=== PATIENT | female | born 1980 | race Hispanic/Latino ===

== ENCOUNTER 2023-09-25 14:20 | Emergency (ER) | payer OTHER ==
[~2023-09-25] VITALS: Ht 152.4 cm; Wt 108.2 kg
[~2023-09-25 14:20] MED LIST: Z.0.NORCO 5-325 TA1 PO
[2023-09-25 14:42] VITALS: PULSE 102; RESP 19; TEMP 98.4; O2SAT 100
[2023-09-25] MEDS ORDERED: DEXILANT60 MG PO (14:50)
[2023-09-25] MEDS ORDERED: FIORICET 50-301 EACH PO (14:50)
== END 2023-09-25 16:05 | disposition home or self-care (01) ==
LOC: ER 14:25
DX: R11.2 Nausea with vomiting, unspecified (principal); K21.9 Gastro-esophageal reflux disease without esophagitis; R51.9 Headache, unspecified; I10 Essential (primary) hypertension; E78.5 Hyperlipidemia, unspecified; D64.9 Anemia, unspecified
CPT/HCPCS: 99283

== ENCOUNTER 2023-11-16 17:28 | Inpatient (IN) | payer OTHER ==
[~2023-11-16] VITALS: Ht 157.5 cm; Wt 106.6 kg
[~2023-11-16 17:28] MED LIST changes: +DEXILANT60 MG PO; +FIORICET 50-301 EACH PO
[2023-11-16] MEDS: FAMOTIDINE 20 MG/2 ML VIAL IV ONE (18:23)
[2023-11-16] MEDS: ONDANSETRON HCL INJ 2MG/ML 2ML 2 MG/ML VIAL IV ONE (18:24)
[2023-11-16] MEDS: SODIUM CHLORIDE 0.9% 1000ML 1,000 ML IV STA (18:24)
[2023-11-16] MEDS: KETOROLAC TROMETHAMINE 30 MG/ML VIAL IV ONE (18:24)
[2023-11-16 18:32] VITALS: PULSE 90; RESP 18; TEMP 99
[2023-11-16] MEDS ORDERED: ONDANSETRON HCL INJ 2MG/ML 2ML 2 MG/ML VIAL IV PRN (19:45)
[2023-11-16] MEDS ORDERED: ZOLPIDEM TARTRATE 5 MG TAB PO PRN (21:00)
[2023-11-16 21:37] VITALS: BP 139/79; PULSE 80; RESP 18; TEMP 98.1; O2SAT 100
[2023-11-16 22:00] VITALS: BP 139/79; PULSE 80; RESP 18; TEMP 98.1; O2SAT 100
[2023-11-16] MEDS ORDERED: LISINOPRIL5 MG PO (22:26)
[2023-11-16] MEDS ORDERED: MAGNESIUM/ALUMINUM/SIMETHICONE 30 ML UDC PO PRN (23:45)
[2023-11-16] MEDS ORDERED: HYDROCODONE/APAP 5MG-325MG TAB PO PRN (23:45)
[2023-11-16] MEDS ORDERED: HYDRALAZINE HCL 20 MG/ML VIAL IV PRN (23:45)
[2023-11-16] MEDS ORDERED: ACETAMINOPHEN 325 MG TAB PO PRN (23:45)
[2023-11-16] MEDS ORDERED: GUAIFENESIN/DEXTROMETHORPHAN LIQD 5 ML UDC PO PRN (23:45)
[2023-11-16] MEDS ORDERED: FERROUS SULFAT325 MG PO (23:51)
[2023-11-16] MEDS ORDERED: DOCUSATE SODIU100 MG PO (23:51)
[2023-11-17] VITALS (7 sets, daily range): BP systolic 108–139; BP diastolic 50–86; PULSE 66–80; RESP 18–19; TEMP 97.8–98.5; O2SAT 99–100
[2023-11-17] MEDS: ACETAMIN/BUTALBITAL/CAFFEINE TAB PO PRN (01:30)
[2023-11-17 02:22] LABS: % IRON SATURATION 7 % (15-50); IRON 23 ug/dL (50-170); TOTAL IRON BINDING CAPACITY 350 ug/dL (261-478); TRANSFERRIN 250 mg/dL (180-382)
[2023-11-17 02:24] LABS: ALBUMIN 3.3 g/dL (3.5-5.0); ALBUMIN/GLOBULIN RATIO 1.1 (0.8-2.0); ANION GAP 12.5 mmol/L (8-16); BILIRUBIN,TOTAL 0.4 mg/dL (0.2-1.2); CALCIUM 8.4 mg/dL (8.4-10.2); CREATININE, SERUM 0.69 mg/dL (0.57-1.11); POTASSIUM 3.5 mmol/L (3.5-5.1); TOTAL PROTEIN 6.4 g/dL (6.5-8.1)
[2023-11-17 03:01] LABS: FOLATE 9.9 ng/mL (7.0-15.4)
[2023-11-17 03:19] LABS: BASOPHILS % 0.4 % (0.0-1.0); EOSINOPHILS # (AUTO) 0.1 (0.0-0.4); EOSINOPHILS % 0.6 % (0.0-6.0); LYMPHOCYTES # (AUTO) 1.5 (1.0-3.2); LYMPHOCYTES % 18.6 % (18.0-39.1); MEAN CORPUSCULAR HEMOGLOBIN 16.6 pg (28-32); MEAN CORPUSCULAR HGB CONC 25.7 g/dL (31-35); MEAN CORPUSCULAR VOLUME 64.8 fL (81-99); MONOCYTES # (AUTO) 0.7 (0.2-0.8); MONOCYTES % 8.5 % (4.4-11.3); NEUTROPHILS # (AUTO) 5.8 (2.1-6.9); PLATELET COUNT 346 x10e3/uL (140-360); RED BLOOD COUNT 3.49 x10e6/uL (3.6-5.1); RED CELL DISTRIBUTION WIDTH 19.2 % (11.7-14.4); WHITE BLOOD COUNT 8.22 x10e3/uL (4.8-10.8)
[2023-11-17 03:26] LABS: HEMATOCRIT 22.6 % (34.2-44.1); HEMOGLOBIN 5.8 g/dL (12.0-16.0)
[2023-11-17] MEDS: DIPHENHYDRAMINE HCL INJ 50 MG/ML VIAL IV ONE (03:38)
[2023-11-17] MEDS: ACETAMINOPHEN 325 MG TAB PO ONE (03:39)
[2023-11-17] MEDS: SODIUM CHLORIDE 0.9% 250ML 250 ML IV ONE (05:00)
[2023-11-17] MEDS ORDERED: INFLUENZA VIRUS VAC SPLIT INJ 0.5 ML SYR IM SCH (05:01)
[2023-11-17] MEDS: DIPHENHYDRAMINE HCL INJ 50 MG/ML VIAL ONE (06:00)
[2023-11-17] MEDS: SODIUM CHLORIDE 0.9% 250ML 250 ML ONE (06:00)
[2023-11-17] MEDS: METOCLOPRAMIDE HCL 10 MG/2ML VIAL IV SCH (06:11)
[2023-11-17] MEDS: METOCLOPRAMIDE HCL 10 MG/2ML VIAL IV STA (07:54)
[2023-11-17] MEDS: LISINOPRIL 2.5 MG TAB PO SCH (08:38)
[2023-11-17] MEDS: MULTIVITAMINS/MINERALS TAB PO SCH (08:38)
[2023-11-17] MEDS ORDERED: FAMOTIDINE 20 MG/2 ML VIAL IV SCH (09:00)
[2023-11-17] MEDS: IRON SUCROSE 100 MG in SODIUM CHLORIDE 0.9% 100 ML IV ONE ×2 (13:53)
[2023-11-17 16:02] LABS: BASOPHILS % 0.6 % (0.0-1.0); EOSINOPHILS # (AUTO) 0.1 (0.0-0.4); EOSINOPHILS % 0.8 % (0.0-6.0); HEMOGLOBIN 7.8 g/dL (12.0-16.0); LYMPHOCYTES # (AUTO) 1.2 (1.0-3.2); LYMPHOCYTES % 16.9 % (18.0-39.1); MEAN CORPUSCULAR HGB CONC 26.9 g/dL (31-35); MEAN CORPUSCULAR VOLUME 70.7 fL (81-99); MONOCYTES # (AUTO) 0.6 (0.2-0.8); MONOCYTES % 8.8 % (4.4-11.3); NEUTROPHILS # (AUTO) 5.2 (2.1-6.9); NEUTROPHILS % 72.1 % (38.7-80.0); PLATELET COUNT 340 x10e3/uL (140-360); RED CELL DISTRIBUTION WIDTH 23.6 % (11.7-14.4); WHITE BLOOD COUNT 7.18 x10e3/uL (4.8-10.8)
[2023-11-17 16:11] LABS: INR 1.08; PROTHROMBIN TIME 14.6 seconds (11.9-14.5)
[2023-11-17 16:38] LABS: FERRITIN 6.53 ng/mL (4.63-204.00)
[2023-11-17] MEDS: CYANOCOBALAMIN 1,000 MCG TAB PO SCH (17:29)
[2023-11-17] MEDS: CYCLOBENZAPRINE HCL 10 MG TAB PO PRN (21:48)
[2023-11-17] MEDS: CYANOCOBALAMIN INJ 1,000 MCG/ML VIAL IM ONE (23:44)
[2023-11-17] MEDS: BISACODYL 5 MG TAB EC PO ONE (23:47)
[2023-11-18] VITALS: BP 139/81; PULSE 82; RESP 19; TEMP 98.2; O2SAT 97
[2023-11-18] MEDS: BISACODYL 5 MG TAB EC PO ONE ×2 (00:38→05:32)
[2023-11-18 05:22] LABS: BASOPHILS % 0.2 % (0.0-1.0); EOSINOPHILS # (AUTO) 0.1 (0.0-0.4); EOSINOPHILS % 0.7 % (0.0-6.0); HEMATOCRIT 28.9 % (34.2-44.1); HEMOGLOBIN 7.9 g/dL (12.0-16.0); LYMPHOCYTES # (AUTO) 1.3 (1.0-3.2); LYMPHOCYTES % 14.1 % (18.0-39.1); MEAN CORPUSCULAR HEMOGLOBIN 19.3 pg (28-32); MEAN CORPUSCULAR HGB CONC 27.3 g/dL (31-35); MEAN CORPUSCULAR VOLUME 70.7 fL (81-99); MONOCYTES # (AUTO) 0.6 (0.2-0.8); MONOCYTES % 6.9 % (4.4-11.3); NEUTROPHILS % 77.4 % (38.7-80.0); PLATELET COUNT 337 x10e3/uL (140-360); RED BLOOD COUNT 4.09 x10e6/uL (3.6-5.1); RED CELL DISTRIBUTION WIDTH 24.2 % (11.7-14.4); WHITE BLOOD COUNT 9.08 x10e3/uL (4.8-10.8)
[2023-11-18] MEDS ORDERED: PROPOFOL IV EMULSION 50 ML IV ONE (06:41)
[2023-11-18] MEDS: CITRATE OF MAGNESIA 300ML BOTTLE PO ONE ×2 (07:11→08:02)
[2023-11-18] MEDS: SODIUM CHLORIDE 0.9% 250ML 250 ML ONE (07:57)
[2023-11-18 08:02] VITALS: BP 134/88; PULSE 86; RESP 18; TEMP 97.5; O2SAT 99
[2023-11-18 08:38] LABS: BASOPHILS % (MANUAL) 1 % (0-1.5); EOSINOPHILS % (MANUAL) 1 % (0-7); LYMPHOCYTES % (MANUAL) 11 % (19-48); MONOCYTES % (MANUAL) 2 % (3.4-9.0); NEUTROPHILS % (MANUAL) 85 % (40-74)
[2023-11-18 08:39] LABS: ANISOCYTOSIS MODERATE; ELLIPTOCYTE, RBC SLIGHT; HYPOCHROMASIA MODERATE; OVALOCYTES FEW; PLATELET ESTIMATE ADEQUATE; PLATELET MORPHOLOGY COMMENT NORMAL; RBC MORPHOLOGY COMMENT ABNORMAL
[2023-11-18] MEDS: CYANOCOBALAMIN INJ 1,000 MCG/ML VIAL IM SCH ×2 (09:00→21:13)
[2023-11-18] MEDS: IRON SUCROSE 100 MG in SODIUM CHLORIDE 0.9% 100 ML IV SCH (10:46)
[2023-11-18 11:01] VITALS: BP 134/88; PULSE 86; RESP 18; TEMP 97.5; O2SAT 99
[2023-11-18 11:23] VITALS: BP 105/56; PULSE 75; RESP 19; TEMP 97.4; O2SAT 97
[2023-11-18] MEDS ORDERED: FENTANYL CITRATE/PF 100MCG/2 ML INJ ONE (11:34)
[2023-11-18] MEDS ORDERED: VITAMIN B-121000 MCG PO (11:34)
[2023-11-18] MEDS ORDERED: FERROUS SULFAT324 MG PO (11:34)
[2023-11-18 16:23] VITALS: BP 143/87; PULSE 96; RESP 19; TEMP 97.5; O2SAT 98
[2023-11-18 19:42] VITALS: BP 124/86; PULSE 81; RESP 21; TEMP 98.5; O2SAT 99
[2023-11-19] VITALS: BP 126/85; PULSE 76; RESP 20; TEMP 97.9; O2SAT 100
[2023-11-19 04:00] VITALS: BP 95/53; PULSE 79; RESP 18; TEMP 98.4; O2SAT 96
[2023-11-19 07:45] VITALS: BP 115/61; PULSE 78; RESP 16; TEMP 97.5; O2SAT 100
[2023-11-19] MEDS: CYANOCOBALAMIN INJ 1,000 MCG/ML VIAL IM SCH (08:57)
[2023-11-19] MEDS: SODIUM CHLORIDE 0.9% 250ML 250 ML ONE (09:01)
[2023-11-19 09:07] VITALS: BP 115/61; PULSE 78; RESP 16; TEMP 97.5; O2SAT 100
[2023-11-19] MEDS ORDERED: DEXILANT60 MG PO (10:55)
[2023-11-19 11:29] VITALS: BP 137/84; PULSE 81; RESP 17; TEMP 98.2; O2SAT 100
== END 2023-11-19 12:25 | disposition home or self-care (01) | DRG 381 ==
LOC: FSED 17:31 → ERHOLD 19:36 → MED/SURG 21:47 → OBSVTOIN 11-17 11:10
PROVIDERS: ADMIT Internal Medicine Critical Care Medicine; ATTEND Internal Medicine Critical Care Medicine
PROC: 30233N1 Transfusion of Nonautologous Red Blood Cells into Peripheral Vein, Percutaneous Approach (ICD-10-PCS; principal; 2023-11-17)
PROC: 0DB98ZX Excision of Duodenum, Via Natural or Artificial Opening Endoscopic, Diagnostic (ICD-10-PCS; 2023-11-17)
DX: K22.11 Ulcer of esophagus with bleeding (principal); D62 Acute posthemorrhagic anemia; K44.9 Diaphragmatic hernia without obstruction or gangrene; K29.71 Gastritis, unspecified, with bleeding; K64.8 Other hemorrhoids; K63.89 Other specified diseases of intestine; K57.31 Diverticulosis of large intestine without perforation or abscess with bleeding; I10 Essential (primary) hypertension; K21.9 Gastro-esophageal reflux disease without esophagitis; E78.5 Hyperlipidemia, unspecified; Z87.891 Personal history of nicotine dependence
CPT/HCPCS: 36415; 43239; 45380; 74176; 80048; 80053; 80076; 80307; 81025; 82607; 82728; 82746; 82948; 83540; 84466; 85025; 85045; 85610; 85730; 86850; 86900; 86920; 88305; 88342; 99284; G0378; J1200; J1756; J1885; J2405; J2470; J2765; J3420; J7030; J7050; P9016

== ENCOUNTER 2024-01-06 17:10 | Emergency (ER) | payer OTHER ==
[~2024-01-06] VITALS: Ht 309.9 cm; Wt 109.3 kg
[~2024-01-06 17:10] MED LIST changes: +DOCUSATE SODIU100 MG PO; +FERROUS SULFAT324 MG PO; +FERROUS SULFAT325 MG PO; +LISINOPRIL5 MG PO; +VITAMIN B-121000 MCG PO
[2024-01-06 17:29] VITALS: PULSE 81; RESP 18; TEMP 98
[2024-01-06] MEDS ORDERED: TYLENOL325 MG PO (17:54)
[2024-01-06] MEDS ORDERED: IBUPROFEN200 MG PO (17:54)
[2024-01-06] MEDS ORDERED: ULTRAM 50MG50 MG PO (17:54)
[2024-01-06] MEDS: KETOROLAC TROMETHAMINE 30 MG/ML VIAL IM ONE (19:19)
[2024-01-06] MEDS: TRAMADOL HCL 50 MG TAB PO ONE (19:20)
[2024-01-06] MEDS: ACETAMINOPHEN 325 MG TAB PO ONE (19:20)
[2024-01-06] MEDS: ONDANSETRON HCL 4 MG ORAL DISINTEGRATING TAB PO ONE (19:20)
[2024-01-06 19:21] VITALS: BP 129/84; PULSE 69; RESP 17; TEMP 98.6; O2SAT 99
== END 2024-01-06 19:23 | disposition home or self-care (01) ==
LOC: FSED 17:13
DX: M25.562 Pain in left knee (principal); M17.12 Unilateral primary osteoarthritis, left knee; M25.462 Effusion, left knee; I10 Essential (primary) hypertension; D64.9 Anemia, unspecified; K21.9 Gastro-esophageal reflux disease without esophagitis
CPT/HCPCS: 73562; 99283; J1885; Q0162